=== PATIENT | female | born 1975 | race Caucasian/White ===

== ENCOUNTER 2023-02-25 08:32 | Day surgery (SDC) | payer OTHER ==
[~2023-02-25] VITALS: Ht 165.1 cm; Wt 86.4 kg
[2023-02-25] MEDS ORDERED: Amphetamine Sal20 MG PO (09:25)
--- NOTE | 2023-02-25 11:05 | NUR ---
02/25/23 1105 Loly Ordoñez 20ML OF ROPIVACAINE 0.5% MIXED AND VERIFIED WITH 0.1ML OF EPI (1MG/ML) TO MAKE ROPIVACAINE 0.5% WITH EPI 1:200,000 FOR INJECTION AT THE OPSITE BY DR MOISE.
[2023-02-25 12:15] VITALS: BP 132/82
--- NOTE | 2023-02-25 13:38 | NUR ---
02/25/23 1338 Yoly Koehler IV REMOVED. WNL. CATHETER INTACT. 09/27 PAIN. EXPRESSED READINESS TO GO HOME. PATIENT STATES PAIN IS A TOLERABLE LEVEL.
== END 2023-02-25 13:46 | disposition home or self-care (01) ==
LOC: ORSCSDS 08:32
PROVIDERS: Orthopaedic Surgery
PROC: 0SBD0ZZ Excision of Left Knee Joint, Open Approach (ICD-10-PCS; principal; 2023-02-25 10:15)
DX: M67.462 Ganglion, left knee (principal); F17.210 Nicotine dependence, cigarettes, uncomplicated; F41.8 Other specified anxiety disorders; Z79.899 Other long term (current) drug therapy
CPT/HCPCS: A9270; J0171; J0690; J1100; J2250; J2405; J2704; J2795; J3010; J7120